=== PATIENT | female | born 1965 | race Two or more races ===

== ENCOUNTER 2017-10-28 08:10 | Inpatient (IN) | payer MEDICAID ==
[~2017-10-28] VITALS: Ht 170.2 cm; Wt 134.7 kg
--- NOTE | 2017-10-28 08:14 | NUR ---
SUNNY FROM HOME DT SEVERE LOWER ABCK PAIN SP FALL. PER PATIENT HER BACK LANDED ON A METAL TABLE. NO KO REPORTED. PATIENT IS AWAKE AND ALERT. NOT IN DISTRESS. SKIN IS WARM TO TOUCH AND NON DIAPHORETIC. PATIENT IS AFEBRILE. VSS
--- NOTE | 2017-10-28 08:16 | NUR ---
MD CASTANEDA AT BEDSIDE
[2017-10-28] MEDS ORDERED: HYDROMORPHONE INJ 2 MG/ML DISP.SYRIN IM ONE (08:30)
[2017-10-28] MEDS ORDERED: HYDROMORPHONE 1 MG/1 ML DISP.SYRIN ONE ×3 (08:33→10:28)
--- NOTE | 2017-10-28 08:49 | NUR ---
PATIENT WAS TAKEN TO CT
[2017-10-28] MEDS ORDERED: HYDROCODONE/APAP 5/325MG 1 EACH TABLET ONE (09:47)
[2017-10-28] MEDS ORDERED: HYDROCODONE/APAP 5/325MG 1 EACH TABLET PO ONE (10:00)
[2017-10-28] MEDS ORDERED: HYDROMORPHONE INJ 0.5 MG/0.5 ML SYRINGE IV ONE (10:00)
[2017-10-28] MEDS ORDERED: KETOROLAC TROMETHAMINE INJ 30 MG/ML VIAL ONE (10:28)
[2017-10-28] MEDS ORDERED: KETOROLAC TROMETHAMINE INJ 30 MG/ML VIAL IV ONE (10:30)
[2017-10-28] MEDS ORDERED: HYDROMORPHONE 1 MG/1 ML DISP.SYRIN IV ONE (10:30)
[2017-10-28] MEDS ORDERED: ONDANSETRON HCL/PF - ER 4 MG/2 ML VIAL IV ONE (11:30)
[2017-10-28] MEDS ORDERED: ONDANSETRON HCL/PF 4 MG/2 ML VIAL ONE (11:38)
--- NOTE | 2017-10-28 12:29 | NUR ---
CALLED [facility] AND ASKED FOR A MED SURG BED FOR THIS PT
--- NOTE | 2017-10-28 12:39 | NUR ---
CALLED [facility] FOR PANEL CALL AND DR WALLACE WAS PAGED.
--- NOTE | 2017-10-28 13:08 | NUR ---
PT IS ASSIGNED TO MED SURG RM#: [id number], DX: INTRACTABLE BACK PAIN, AND ACCEPTING MD: DR WALLACE
--- NOTE | 2017-10-28 13:16 | NUR ---
PATIENT TRANSPORTED TO [facility]
--- NOTE | 2017-10-28 13:45 | NUR ---
MS RN NOTES PATIENT ADMITTED TO UNIT, ARRIVED AT 1330 VIA GURNEY, REPORT RECEIVED FROM LETITIA SHABAZZ. PATIENT AWAKE, ALERT AND ORIENTED. VERBALLY RESPONSIVE AND RESPONDS TO VERBAL AND TACTILE STIMULI. PATIENT BREATHING EVEN AND UNLABORED. NO SOB OR ACUTE DISTRESS. NO CHANGES IN LOC NOTED. PATIENT ADMITTED UNDER MEDICAL SUPERVISION OF DR. WALLACE, AWARE OF PATIENT ADMISSION. PATIENT ORIENTED TO STAFF, ROOM, PLAN OF CARE, MEAL TIMES AND MENU SYSTEM. IV INTACT AND PATENT, NO SWELLING OR BLEEDING ON SITE. WILL CONTINUE TO MONITOR. BED LOCKED AND IN LOW POSITION. BILATERAL UPPER SIDE RAILS UP AND LOCKED. FAMILY AT BEDSIDE. CALL LIGHT WITHIN EASY REACH
[2017-10-28 14:00] VITALS: BP 134/94
[2017-10-28] MEDS ORDERED: ACETAMINOPHEN 325 MG TABLET PO PRN (14:00)
[2017-10-28] MEDS ORDERED: HYDROCODONE/APAP 5/325MG 1 EACH TABLET PO PRN (14:00)
[2017-10-28] MEDS ORDERED: Z GUARD REMEDY 2 OZ OINT TP PRN (14:00)
[2017-10-28] MEDS ORDERED: MAG HYDROX/AL HYDROX/SIMETH 30 ML UDC PO PRN (14:00)
[2017-10-28] MEDS ORDERED: METOCLOPRAMIDE HCL 10 MG/2 ML VIAL IV PRN (14:00)
[2017-10-28] MEDS ORDERED: ONDANSETRON HCL/PF 4 MG/2 ML VIAL IVP PRN (14:00)
[2017-10-28] MEDS ORDERED: MAGNESIUM HYDROXIDE 30 ML UDC PO PRN (14:00)
[2017-10-28] MEDS ORDERED: ZOLPIDEM TARTRATE 5 MG TABLET PO PRN (14:00)
[2017-10-28] MEDS: CYCLOBENZAPRINE 10 MG TABLET PO PRN (14:34)
[2017-10-28 16:00] VITALS: BP 140/75
[2017-10-28 17:15] LABS: BASOPHILS % (AUTO) 0.2 % (0.0-2.0); EOSINOPHILS % (AUTO) 0.3 % (0.0-6.0); HEMATOCRIT 41 % (33-45); HEMOGLOBIN 13.3 g/dL (11.5-14.8); LYMPHOCYTES # (AUTO) 1.2 /CMM (0.8-4.8); LYMPHOCYTES % (AUTO) 13.6 % (20.0-44.0); MEAN CORPUSCULAR HEMOGLOBIN 28 PG (26.0-33.0); MEAN CORPUSCULAR HGB CONC 32 g/dl (31.0-36.0); MEAN CORPUSCULAR VOLUME 85 fL (82-100); MONOCYTES # (AUTO) 0.4 /CMM (0.1-1.30); MONOCYTES % (AUTO) 4.3 % (2.0-12.0); NEUTROPHILS # (AUTO) 7.2 /CMM (1.8-8.9); NEUTROPHILS % (AUTO) 81.6 % (43.0-81.0); PLATELET COUNT (AUTO) 288 /CMM (150-450); RED BLOOD CELL COUNT(AUTO) 4.83 MIL/uL (4.0-5.2); WHITE BLOOD COUNT (AUTO) 8.8 K/uL (4.3-11.0)
[2017-10-28 17:35] LABS: ALBUMIN 3.7 g/dL (3.4-5.0); BILIRUBIN,TOTAL 0.4 mg/dL (0.2-1.0); CALCIUM, SERUM 8.9 mg/dL (8.5-10.1); CREATININE 0.9 mg/dL (0.6-1.3); POTASSIUM 3.8 mmol/L (3.5-5.1); TOTAL PROTEIN, SERUM 7.8 g/dL (6.4-8.2)
[2017-10-28] MEDS: KETOROLAC TROMETHAMINE INJ 30 MG/ML VIAL IV PRN (17:40)
--- NOTE | 2017-10-28 19:00 | NUR ---
MS RN OPENING NOTES RECEIVED PATIENT IN STABLE CONDITION. IN NO APPARENT DISTRESS. BEDSIDE RAILS ARE UPX2. BED IS LOCKED AND LOWERED. CALL LIGHT IS WITHIN REACH. WILL CONTINUE TO MONITOR PATIENT.
--- NOTE | 2017-10-28 19:23 | NUR ---
MS RN NOTES PATIENT RECEIVED RESTING INSIDE ROOM. AWAKE, ALERT AND ORIENTED. VERBALLY RESPONSIVE AND RESPONDS TO VERBAL AND TACTILE STIMULI. BREATHING EVEN AND UNLABORED. NO SOB OR ACUTE DISTRESS NOTED. NO CHANGES IN LOC NOTED. IV INTACT AND PATENT. ENDORSED TO INCOMING SHIFT FOR ANDERSON. BED LOCKED AND IN LOW POSITION. BILATERAL UPPER SIDE RAILS UP AND LOCKED. CALL LIGHT WITHIN EASY REACH
[2017-10-28 20:00] VITALS: BP 143/78
[2017-10-29] MEDS: KETOROLAC TROMETHAMINE INJ 30 MG/ML VIAL IV PRN (04:24)
--- NOTE | 2017-10-29 05:55 | NUR ---
MS RN CLOSING NOTES ASLEEP AND EASILY AWAKEN, STABLE, TOLERATING ROOM AIR 99%. NOT IN DISTRESS. RESPIRATION EVEN AND UNLABORED. KEPT CLEAN AND DRY AND COMFORTABLE, ALL NURSING CARE RENDERED. NEEDS ATTENDED AND ANTICIPATED. GOOD SKIN CARE PROVIDED. ASSISTED REPOSITION EVERY 2 HOURS. ON LOW BED AT ALL TIMES TO ENSURE SAFETY. SAFE HAZARD FREE ENVIRONMENT PROVIDED. CALL LIGHT WITHIN EASY TO REACH. WILL ENDORSE NEXT SHIFT CONTINUITY OF CARE.
[2017-10-29 06:16] LABS: BASOPHILS % (AUTO) 0.5 % (0.0-2.0); EOSINOPHILS % (AUTO) 4.1 % (0.0-6.0); HEMATOCRIT 41 % (33-45); HEMOGLOBIN 12.9 g/dL (11.5-14.8); LYMPHOCYTES # (AUTO) 1.5 /CMM (0.8-4.8); LYMPHOCYTES % (AUTO) 22.3 % (20.0-44.0); MEAN CORPUSCULAR HEMOGLOBIN 27 PG (26.0-33.0); MEAN CORPUSCULAR HGB CONC 32 g/dl (31.0-36.0); MEAN CORPUSCULAR VOLUME 86 fL (82-100); MONOCYTES # (AUTO) 0.4 /CMM (0.1-1.30); MONOCYTES % (AUTO) 5.7 % (2.0-12.0); NEUTROPHILS # (AUTO) 4.4 /CMM (1.8-8.9); NEUTROPHILS % (AUTO) 67.4 % (43.0-81.0); PLATELET COUNT (AUTO) 274 /CMM (150-450); RDW COEFFICIENT OF VARIATION 14.9 (11.5-15.0); RED BLOOD CELL COUNT(AUTO) 4.71 MIL/uL (4.0-5.2); WHITE BLOOD COUNT (AUTO) 6.6 K/uL (4.3-11.0)
[2017-10-29 06:26] LABS: CALCIUM, SERUM 8.8 mg/dL (8.5-10.1); CREATININE 0.8 mg/dL (0.6-1.3); MAGNESIUM 2.2 mg/dL (1.8-2.4); PHOSPHORUS 4.6 mg/dL (2.5-4.9); POTASSIUM 3.6 mmol/L (3.5-5.1)
[2017-10-29 08:00] VITALS: BP 122/70
--- NOTE | 2017-10-29 08:00 | NUR ---
MS RN AM NOTES PATIENT AWAKE, ALERT AND ORIENTED. VERBALLY RESPONSIVE AND RESPONDS TO VERBAL AND TACTILE STIMULI. PATIENT BREATHING EVEN AND UNLABORED ON ROOM AIR. NO SOB OR ACUTE DISTRESS. NO CHANGES IN LOC NOTED. IV INTACT AND PATENT, NO SWELLING OR BLEEDING ON SITE. C/O BACK PAIN -REFUSED PAIN MEDS AND JUST WANTED FLEXERIL AT THIS TIME.WILL CONTINUE TO MONITOR. BED LOCKED AND IN LOW POSITION. BILATERAL UPPER SIDE RAILS UP AND LOCKED. FAMILY AT BEDSIDE. CALL LIGHT WITHIN EASY REACH
[2017-10-29] MEDS: CYCLOBENZAPRINE 10 MG TABLET PO PRN (09:16)
--- NOTE | 2017-10-29 18:00 | NUR ---
DISCHARGED PT HOME -AMA INSPITE OF EXPLAINING ITS RISKS AND BENEFITS.PT/FAMILY INSISTS TO GO HOME. REMOVED IV H/L LT AC WITHOUT BLEEDING NOTED.LABS AND CONSULTATION COPIES GIVEN TO THE PT.DISCHARGED PT AMA WITH STABLE V/S DENYING ANY PAIN OR DISTRESS.
--- NOTE | 2017-10-29 20:04 | NUR ---
INCIDENT REPORT HAS BEEN SUBMITTED EVD [id number].
== END 2017-10-29 18:00 | disposition left against medical advice (07) | DRG 347 ==
LOC: ER 08:12 → MEDSG2 13:11
PROVIDERS: ADMIT Internal Medicine; ATTEND Internal Medicine
DX: S32.2XXA Fracture of coccyx, initial encounter for closed fracture (principal); Z68.42 Body mass index [BMI] 45.0-49.9, adult; E66.9 Obesity, unspecified; K57.30 Diverticulosis of large intestine without perforation or abscess without bleeding; W01.0XXA Fall on same level from slipping, tripping and stumbling without subsequent striking against object, initial encounter; Y92.009 Unspecified place in unspecified non-institutional (private) residence as the place of occurrence of the external cause; Z91.018 Allergy to other foods
CPT/HCPCS: 36415; 70450-TC; 72128-TC; 72131-TC; 72192-TC; 73700-TC; 80048-TC; 80053-TC; 80061-TC; 83735-TC; 84100-TC; 85025-TC; 87081-TC; A4606; J1170; J1885; J2405; Z7610